=== PATIENT | female | born 1955 | race Caucasian/White ===

== ENCOUNTER 2025-06-04 13:54 | Emergency (ER) | payer MEDICARE, OTHER ==
[~2025-06-04] VITALS: Ht 152.4 cm; Wt 65.6 kg
[~2025-06-04 13:54] MED LIST: CITA-178 PO; CYCL-394 PO; HYDR-3965 PO; PROP10TA10 PO; TRAZ-91 PO
[2025-06-04 13:59] VITALS: BP 172/89; PULSE 64; RESP 16; TEMP 97.9; O2SAT 98
--- NOTE | 2025-06-04 14:29 | Physician Documentation ---
History of Present Illness ~ Chief Complaint: Ear Pain Stated Complaint: EAR PAIN Time Seen by MD: 14:19 Primary Medical Doctor: DR RITCHIE HPI Patient is a 69-year-old female that reports to the emergency department for evaluation of right-sided ear pain. Patient reports that she was at home getting ready for an event had a Q-tip sticking in her ear while brushing her hair the brush somehow pushed the Q-tip further into her ear causing significant pain. Patient denies any drainage from the ear but does report dizziness associated with a significant pain since that time. She reports that she took a [place] 10 at home and came to the emergency department for evaluation. Patient denies any other symptoms at this time. Medication Reconciliation Allergies: Coded Allergies: erythromycin base (Unverified Allergy, Unknown, 06/04/25) Uncoded Allergies: CONTRAST DYE (Allergy, Unknown, 06/04/25) Scheduled Citalopram Hydrobromide* (Celexa*), 20 MG PO DAILY, (Reported) Cyclobenzaprine HCl (Cyclobenzaprine HCl), 10 MG PO HSP, (Reported) Hydrocodone Bit/Acetaminophen 5/325 MG ([place] 5/325 MG), 1 TAB PO Q4H, (Reported) Propranolol Hcl* (Inderal*), 10 MG PO QAM, (Reported) Propranolol Hcl* (Inderal*), 20 MG PO HS, (Reported) Trazodone Hcl* (Trazodone Hcl*), 50 MG PO HS, (Reported) Review of Systems ROS As stated above in the HPI, otherwise all systems are reviewed and negative. Physical Exam Vital Signs: Temperature: 97.9, Heart Rate: 64, Respiratory Rate: 16, BP: 172/89, Pulse Oximetry: 98, Weight: 65.600 Oxygen Flow Rate: 0 Physical Exam VITALS: Reviewed and as above. GENERAL: Alert, no apparent distress. HEENT: Normocephalic, atraumatic, PERRL, EOMI, dry mucosa, no erythema, obvious perforation with small amounts of blood surrounding the tympanic membrane of the right ear. RESPIRATORY: Lungs clear, normal breath sounds, no respiratory distress. CHEST: No accessory muscle use, no retractions CV: Regular rate, rhythm, no edema, no murmur, No: JVD GI: Soft, non-tender, bowels sounds present, no rebound, guarding, or rigidity BACK: No CVA tenderness, or swelling MUSCULOSKELETAL No deformities, no edema SKIN: Warm and dry, no rash NEURO: Oriented x4, No motor or sensory deficit PSYCH: Normal mood and affect, no agitation Progress Results/Orders Results/Orders Vital Signs 06/04/25 13:59 Temp 97.9 Pulse 64 Resp 16 B/P (MAP) 172/89 Pulse Ox 98 O2 Flow Rate 0 Medical Decision Making Additional information obtaine: other Findings Exam and history most consistent with traumatic rupture of the right tympanic membrane. I have a low suspicion for retained foreign body examination was thorough patient reports that traumatic injury was due to a Q-tip that was removed after the injury. Prescription for Ciprodex has been provided. If symptoms worsen, pain increases significant drainage is noted please return to the emergency department promptly. Cautious return precautions discussed w/ full understanding. Please follow up with her primary care provider. Please call ENT office david phone number has been provided in your discharge instructions. Please return to the emergency department if you develop any increasing your current symptoms significant drainage significant pain increased dizziness beyond what we talked about today fever chills nausea vomiting or any other concerning symptoms that we discussed here today. Ear Diff. Dx: Considerations: Include: Abrasion, Cerumen impaction, Foreign body, Otitis externa, Barotrauma, Otitis media, Perforation, Referred pain- dental, Referred pain-pharyngitis, Referred pain-sinusitis, Referred pain-TMJ syn., Tympanic Membrane Injury, Other Eye Diff. Dx: Considerations: Include: Chalazoin, Conjuctivits-allergic, Conjuctivitis-bacterial, Conjuctivits-chlamydial, Conjuctivitis-viral, Corneal abrasion, Corneal laceration, Corneal ulceration, Foreign body-conjuctiva, Foreign body-corneal, Foreign body-intraocular, Foreign body-lid, Glaucoma, Globe rupture, Hordeolum, Iritis, Orbital cellulitis, Periobital cellulitis, Retinal artery occulsion, Retinal vein occlusion, Rust ring, Subconjunctival hem, Ultraviolet keratitis, Uveitis, Vitreous hemorrhage, Other Nose Diff. Dx: Considerations: Include: Abrasion, Anterior nasal bleed, Avul edgardo, Contusion, Coagulopathy, Fracture-nasal bone, Fracture-septum, Hypertension, Laceration, Other, Posterior nasal bleed, Retained foreign body, Septal hematoma Tooth Diff. Dx: Considerations: Include: Alveolar fracture, Aveolar osteitis, ANUG, Facial cellulitis, Periapical abscess, Periodontal abscess, Post- extraction bleeding, Pulpitis, Trigeminal neuralgia, Tooth-avulsion, Tooth- eruption, Tooth-fracture, Tooth-subluxation, Other Throat Diff Dx: Considerations: Include: AIDS, Epiglottitis, Esophageal candidiasis, Hand foot mouth disease, Herpangina, Herpetic stomatitis, Herpes simplex, Infection mononucleosis, Immunodeficiency, Kee's angina, Peritonsillar abscess, Peritonsillar cellulitis, Pharyngitis-diphtheria, Pharyngitis-strepococcal, Pharyngitis-viral, Thrush, URI, Other Departure Disposition: HOME / SELF CARE / HOMELESS Impression: Primary Impression: Perforated right tympanic membrane on examination Condition: Stable Discharge Instructions: Earache, Adult Additional Instructions: Exam and history most consistent with traumatic rupture of the right tympanic membrane. I have a low suspicion for retained foreign body examination was thorough patient reports that traumatic injury was due to a Q-tip that was removed after the injury. Prescription for Ciprodex has been provided. If symptoms worsen, pain increases significant drainage is noted please return to the emergency department promptly. Cautious return precautions discussed w/ full understanding. Please follow up with her primary care provider. Please call ENT office david phone number has been provided in your discharge instructions. Please return to the emergency department if you develop any increasing your current symptoms significant drainage significant pain increased dizziness beyond what we talked about today fever chills nausea vomiting or any other concerning symptoms that we discussed here today. It is very important for you to follow up with her primary care provider and the ENT clinic [phone]. If you are unable to get in with the ENT clinic please follow up with your primary care provider david. Your ear will need to be closely monitored. This injury will take several weeks to heal but she should gradually have improvement after several days. She has been prescribed antibiotics you will need to use those antibiotics as prescribed please ask additional questions if you have any when he pick them up from the pharmacy. He is very important that you keep your ear dry other than the antibiotics that you are placing in her ear. It is very important that you follow up with your primary care provider and ENT. He has been reporting that you return to the emergency department if you have any worsening or recurrent symptoms or any additional concerning symptoms that we discussed here today i.e. concerning draining significant pain fever chills nausea vomiting or any other concerning symptoms that we discussed here today. Referrals: NO PRIMARY CARE PROVIDER (PCP) Prescriptions Ciprofloxacin HCl/Dexameth (Ciproflox-Dexameth Otic Susp) 0.3 %-0.1 % Drops.susp 4 DROP .SEE ORDER BID for 10 Days, #1 BOT 0 Refills Prov: KEVIN PIMENTEL 06/04/25 Education Educated: Patient Educated regarding: diagnosis, treatment, need for follow up Signature Scribe Signature: A Attestation: Scribed for Kevin Pimentel by MIKE Garcia . 06/04/25 14:43 KEVIN PIMENTEL Jun 04, 2025 14:29
[2025-06-04] MEDS ORDERED: CIPR7.5D7 (14:42)
== END 2025-06-04 14:52 | disposition home or self-care (01) ==
LOC: ER 13:55
DX: H72.91 Unspecified perforation of tympanic membrane, right ear (principal); Z88.1 Allergy status to other antibiotic agents; Z79.899 Other long term (current) drug therapy
CPT/HCPCS: 99283